=== PATIENT | male | born 1965 | race Caucasian/White ===

== ENCOUNTER 2017-02-06 21:33 | Observation (INO) | payer BC, OTHER ==
[2017-02-06 22:03] LABS: ABSOLUTE BASOPHILS # (AUTO) 0.1 10^3/uL (0.0-0.2); ABSOLUTE EOSINOPHILS # (AUTO) 0.1 10^3/uL (0.0-0.6); ABSOLUTE LYMPHOCYTES (AUTO) 1.3 10^3/uL (0.5-4.7); ABSOLUTE MONOCYTES (AUTO) 0.8 10^3/uL (0.1-1.4); BASOPHILS % (AUTO) 1.2 % (0-2); HEMATOCRIT 45.9 % (37.9-51.0); HEMOGLOBIN 15.3 g/dL (13.5-17.0); LYMPHOCYTES % (AUTO) 21.2 % (13-45); MEAN CORPUSCULAR HGB CONC 33.2 g/dL (32.0-36.0); MEAN CORPUSCULAR VOLUME 93 fl (80-97); MONOCYTES % (AUTO) 11.9 % (3-13); RED BLOOD COUNT 4.92 10^6/uL (4.35-5.55); RED CELL DISTRIBUTION WIDTH 12.8 % (11.5-14.0); SEGMENTED NEUTROPHILS % (AUTO) 63.7 % (42-78); WHITE BLOOD COUNT 6.3 10^3/uL (4.0-10.5)
[2017-02-06] MEDS ORDERED: MORPHINE SULFATE 10 MG/ML INJ IV ONE (22:03)
--- NOTE | 2017-02-06 22:04 | ER Document Report ---
ED Cardiac - General Chief Complaint: Chest Pain Stated Complaint: CHEST PAIN Time seen by provider: 22:04 Mode of Arrival: Ambulatory Information source: Patient TRAVEL OUTSIDE OF THE [place] IN LAST 30 DAYS: No - HPI Patient complains to provider of: Chest pain Was the onset of pain: Sudden Is the pain a: New problem Chest pain location: Substernal Quality of pain: Heaviness Chest pain radiation location: Left arm Severity now: Mild Severity at worst: Moderate Chest pain precipitating factors: At Rest Cardiac risk factors: Hx MS Positive cardiac history: Yes Associated symptoms: Headache, Lightheaded, Nausea/vomiting, Shortness of breath Exacerbated by: Denies Relieved by: Nothing Similar symptoms previously: Yes Recently seen / treated by doctor: No Notes: Patient is a 51-year-old male who presents to the emergency room complaining of chest heaviness with aching pain down his left arm, headache, nausea, shortness of breath, cold chills, symptoms started shortly before arrival in the emergency room, and have resolved since, patient was in the left anterior chest wall, he denies any injury, no cough, cold, congestion, he does report a history of similar symptoms in the past, states he was diagnosed with a "mild heart attack" had a cardiac catheterization at [facility] but did not receive any stents - Related Data Allergies/Adverse Reactions: No Known Allergies Allergy (Verified 02/07/17 01:14) Home Medications: Current Home Medications Fluoxetine HCl [Prozac] 40 mg PO DAILY 02/07/17 [History] Omeprazole Magnesium [Prilosec Otc] 40 mg PO DAILY 02/07/17 [History] Past Medical History - General Information source: Patient - Social History Smoking Status: Never Smoker Family History: Reviewed & Not Pertinent - Past Medical History Cardiac Medical History: Reports: Hx Hypertension Renal/ Medical History: Reports: Hx Kidney Stones Review of Systems - Review of Systems Constitutional: Chills EENT: No symptoms reported Cardiovascular: See HPI Respiratory: See HPI Gastrointestinal: Nausea Genitourinary: No symptoms reported Male Genitourinary: No symptoms reported Musculoskeletal: No symptoms reported Skin: No symptoms reported Hematologic/Lymphatic: No symptoms reported Neurological/Psychological: No symptoms reported -: Yes All other systems reviewed and negative Physical Exam - Vital signs Vitals: Temp Pulse Resp BP Pulse Ox 98.2 F 84 20 126/74 H 97 02/06/17 21:51 02/06/17 21:51 02/06/17 21:51 02/06/17 21:51 02/06/17 21:51 Interpretation: Normal - General General appearance: Appears well, Alert - HEENT Head: Normocephalic, Atraumatic Eyes: Normal Pupils: PERRL - Respiratory Respiratory status: No respiratory distress Chest status: Tender - Mild tenderness to palpate in left anterior chest wall Breath sounds: Normal Chest palpation: Normal - Cardiovascular Rhythm: Regular Heart sounds: Normal auscultation Murmur: No - Abdominal Inspection: Normal Distension: No distension Bowel sounds: Normal Tenderness: Nontender Organomegaly: No organomegaly - Back Back: Normal, Nontender - Extremities General upper extremity: Normal inspection, Nontender, Normal color, Normal ROM , Normal temperature General lower extremity: Normal inspection, Nontender, Normal color, Normal ROM , Normal temperature, Normal weight bearing. No: Tiki's sign - Neurological Neuro grossly intact: Yes Cognition: Normal Orientation: AAOx4 [place] Coma Scale Eye Opening: Spontaneous [place] Coma Scale Verbal: Oriented [place] Coma Scale Motor: Obeys Commands Effie Coma Scale Total: 15 Speech: Normal Motor strength normal: LUE, RUE, LLE, RLE Sensory: Normal - Psychological Associated symptoms: Normal affect, Normal mood - Skin Skin Temperature: Warm Skin Moisture: Dry Skin Color: Normal Course - Re-evaluation Re-evalutation: 02/07/17 03:33 Patient's chest pain is reproducible on palpation, however he has a significant cardiac history with risk factors for MS, and therefore will be placed on observation status on the hospitalist service for further evaluation and treatment - Vital Signs Vital signs: Temp Pulse Resp BP Pulse Ox 98.2 F 84 17 126/83 H 97 02/06/17 21:51 02/06/17 21:51 02/07/17 03:01 02/07/17 03:01 02/07/17 03:01 - Laboratory Result Diagrams: 02/06/17 21:51 02/06/17 21:51 Laboratory results interpreted by me: 02/06/17 21:51 Creatine Kinase 175 H - Diagnostic Test Radiology reviewed: Image reviewed, Reports reviewed - EKG Interpretation by Me EKG shows normal: Sinus rhythm Rate: Normal Rhythm: NSR - Transfer of Care Care transferred to following provider: Dr Wetzel Discharge - Discharge Clinical Impression: Chest pain Qualifiers: Chest pain type: unspecified Qualified Code(s): R07.9 - Chest pain, unspecified Condition: Stable Disposition: ADMITTED OBSERVATION Admitting Provider: Hospitalist Unit Admitted: Telemetry Referrals: CHARISSA SANDHU MD [Primary Care Provider] - Follow up as needed
[2017-02-06 22:43] LABS: ALANINE AMINOTRANSFERASE 26 U/L (21-72); ALKALINE PHOSPHATASE 98 U/L (38-126); ANION GAP 12 (5-19); ASPARTATE AMINO TRANSFERASE 24 U/L (17-59); BILIRUBIN,TOTAL 0.5 mg/dL (0.2-1.3); BLOOD UREA NITROGEN 17 mg/dL (7-20); CALCIUM 9.4 mg/dL (8.4-10.2); CARBON DIOXIDE 25 mmol/L (22-30); CHLORIDE 100 mmol/L (98-107); CREATINE KINASE 175 U/L (55-170); CREATININE RESULT 1.04 mg/dL (0.52-1.25); GLUCOSE 78 mg/dL (75-110); TOTAL PROTEIN 6.5 g/dL (6.3-8.2)
[2017-02-06 22:51] LABS: CREATINE KINASE MB 0.43 ng/mL (<4.55)
[2017-02-06 22:54] LABS: TROPONIN I < 0.012 ng/mL
[2017-02-07] MEDS ORDERED: ACETAMINOPHEN 325 MG TABLET PO PRN (05:17)
[2017-02-07] MEDS ORDERED: LANSOPRAZOLE 30 MG TAB.RAP.DR PO ONE ×2 (08:30→11:30)
[2017-02-07] MEDS ORDERED: ASPIRIN 81 MG TABLET, CHEWABLE PO ONE (08:30)
[2017-02-07 08:35] LABS: CHOLESTEROL 211.72 mg/dL (0-200); Direct HDL 61 mg/dL (>40); TRIGLYCERIDES 101 mg/dL (<150)
[2017-02-07 08:45] LABS: DIRECT LDL 136 mg/dL (<100)
[2017-02-07 08:53] LABS: ALCOHOL < 10 mg/dL (NONE DETECTED)
--- NOTE | 2017-02-07 09:34 | PDOC H&P ---
History of Present Illness Admission Date/PCP: 02/07/17 03:32 CHARISSA SANDHU MD Patient complains of: chest pain History of Present Illness: QNIG JUNE is a 51 year old , with underlying mild anxiety and depression, without suicidal or homicidal ideation, known hiatal hernia, mild arthritis, who reportedly suffered a "mild heart attack " 7-8 years ago, with cardiac catheterization at [facility] per patient revealing no significant disease , and with no angioplasty or stent implantation felt necessary. Presents to the emergency room for evaluation of above complaint. Was sitting in a chair when he developed left-sided chest Heaviness, with aching pain down his left arm, and associated mild headache, nausea, shortness of breath, in cold chills. Onset of symptoms shortly before arrival in the emergency room. Partial relief with 2 sublingual nitroglycerin. Symptoms have greatly decreased in intensity, but have persisted in a somewhat waxing and waning fashion since then. Still having mild discomfort at the present time. Pain was noted to be increased with palpation and compression by the emergency room physician. Previous such episodes of pain, one of which led to the above workup a number of years ago. 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 States he stopped several times along the way. Patient has been discussed with emergency room physician who evaluated the patient. . Laboratory results are listed in [employer] and are reviewed. X-ray summary results are listed below, with full report(s) reviewed. . EKG reviewed. And compared to a tracing from 04/23/2015 Social history/personal habits: Single. No children. Recently self-employed, but currently unemployed. Never a smoker. Rare alcohol. Denies illicit drug use. Allergies/adverse reactions NKDA. Home medications are reviewed by discussion with patient and are to be reconciled by nursing staff in [facility]. Home medications initially autopopulated into [facility] may not accurately reflect patient's true medications, dosages, and/or frequencies. REVIEW OF SYSTEMS: Constitutional: No fever or chills. Eyes: Wears glasses. ENT: No swallowing problems or complaints. No hearing problems or complaints. Pulmonary: See history and present illness. Cardiovascular: See history and present illness. Gastrointestinal: See history and present illness. Skin: No current complaints, including rashes. Hematologic: No unusual easy bruising or bleeding. Neurologic: No current complaints, including numbness or tingling. Musculoskeletal: Joint pain from arthritis. Psychiatric: Mild Anxiety depression; denies suicidal or homicidal ideation. Endocrine: No current complaints, including polyuria. Genitourinary: No current complaints, including dysuria. PHYSICAL EXAMINATION: 5 feet 7 inches tall. 79.4 kg. Temperature 98.2. BMI 27.4 kg/m. Blood pressure 139/88. Pulse 67 and regular. 97% saturation on room air. Respirations are 14 and unlabored. Slightly overweight otherwise well-nourished well-developed male who appears a bit younger than his stated age. Pleasant awake alert and cooperative. No obvious distress other than perhaps mildly anxious. Male follow up manager is present at his side; patient approves. Female emergency room nurse Martha is present. Skin is warm and dry. No grossly obvious evidence of rash in areas of skin examined. No subcutaneous nodules palpated. ENT: Hearing grossly normal to normal conversation. Tongue midline on protrusion pink and slightly moist. Eyes: No scleral icterus. Pupils equal and reactive to light at 4 mm. [place] conjunctivae. Neck is supple and nontender to gentle active range of motion and palpation. Midline trachea. No palpable thyroid nodule mass enlargement or tenderness. Lymphatic: No palpable cervical or clavicular nodes. Neck and lymphatic exams limited by patient body habitus. Psychiatric: Reasonable insight into acute and chronic medical issues. Oriented to time location and why here. Lungs: Auscultation reveals clear and equal breath sounds bilaterally. No use of accessory respiratory muscles. Cardiovascular: Heart regular rate and rhythm, without gallop murmur or rub. No carotid or abdominal aortic bruits. No ankle or pedal edema. palpable dorsalis pedis pulses. Abdomen: soft, , slightly distended nontender with positive bowel sounds. Unable to adequately evaluate abdomen for masses or organomegaly due to distention. Compression of neither his upper abdomen nor sternum reproduces her previously noted chest pain, but compression of his left anterior chest wall does. Extremities: Feet are warm and dry. No calf tenderness to compression. No grossly obvious visual evidence of calf swelling. Gentle manipulation of lower extremities fails to reveal any obvious evidence of injury or instability to knees hips or ankles. Neurologic: Moves upper extremities grossly normally. Patellar reflexes absent. Absent Babinski. Light touch is intact at feet. Dorsiflexion and plantarflexion of feet 5 / 5 and symmetric. Past Medical History Cardiac Medical History: Reports: Coronary Artery Disease, Myocardial Infarction , Hypertension Denies: Congestive Heart Failure, DVT, Hyperlipidema, Pulmonary Embolism Pulmonary Medical History: Denies: Asthma, Chronic Obstructive Pulmonary Disease (COPD) EENT Medical History: Reports: Eyes - Wears glasses. Denies: Ears, Throat Neurological Medical History: Denies: Hemorrhagic CVA, Ischemic CVA, Seizures Endocrine Medical History: Denies: Diabetes Mellitus Type 1, Diabetes Mellitus Type 2, Hyperthyroidism, Hypothyroidism Renal/ Medical History: Reports: Nephrolithiasis - History of GI Medical History: Reports: Hiatal Hernia Denies: Cirrhosis, Hepatitis, Peptic Ulcer Disease Musculoskeltal Medical History: Reports: Arthritis Skin Medical History: Reports: None Denies: Eczema, Psoriasis Psychiatric Medical History: Reports: Depression, General Anxiety Disorder Denies: Alcohol Dependency, Substance Abuse, Tobacco Dependency Hematology: Reports: None Infectious Medical History: Denies: Hepatitis B, Hepatitis C Past Surgical History Past Surgical History: Reports: None Social History Information Source: Patient, Emergency Med Personnel, [facility] Records Smoking Status: Never Smoker Frequency of Alcohol Use: Rare Drugs: None - Advance Directive Resuscitation Status: Full Code Surrogate healthcare decision maker:: His sister Ysabel Family History Family History: Reviewed & Not Pertinent Parental Family History Reviewed: Yes Children Family History Reviewed: NA Sibling(s) Family History Reviewed.: Yes Medication/Allergy Home Medications: Fluoxetine HCl [Prozac] 40 mg PO DAILY 02/07/17 Omeprazole Magnesium [Prilosec Otc] 40 mg PO DAILY 02/07/17 Allergies/Adverse Reactions: No Known Allergies Allergy (Verified 02/07/17 01:14) Physical Exam Vital Signs: Temp Pulse Resp BP Pulse Ox 98.2 F 84 16 137/84 H 99 02/07/17 07:08 02/06/17 21:51 02/07/17 07:01 02/07/17 07:01 02/07/17 07:01 Results Impressions: Chest X-Ray 02/06/17 21:39 IMPRESSION: NO ACUTE RADIOGRAPHIC FINDING IN THE CHEST. Assessment & Plan - Diagnosis (1) Anxiety Is this a current diagnosis for this admission?: YesPlan: Resume home medications as appropriate once these have been determined and reviewed. (2) CAD (coronary artery disease) Qualifiers: Coronary Disease-Associated Artery/Lesion type: [place] artery [place] vs. transplanted heart: [place] heart Associated angina: without angina Qualified Code(s): I25.10 - Atherosclerotic heart disease of [place] coronary artery without angina pectoris Is this a current diagnosis for this admission?: Yes (3) Depression Qualifiers: Depression Type: unspecified Qualified Code(s): F32.9 - Major depressive disorder, single episode, unspecified Is this a current diagnosis for this admission?: YesPlan: Resume home medications as appropriate once these have been reviewed. (4) Precordial chest pain Is this a current diagnosis for this admission?: YesPlan: Likely this is musculoskeletal in nature, but given both his suspected coronary artery disease, along with his recent prolonged trip, will check d-dimer, and Patient will be placed in observation bed under chest pain protocol. Patient understands to notify staff should chest pain recur. Serial troponin's . Repeat EKG. lipid panel. I have strongly urged patient to be careful getting out of bed, to avoid a fall with injury. Knee high SCDs for DVT prophylaxis. Along with subcutaneous Lovenox . Impression and plans were discussed with patient, who concurs. Time spent in evaluation and management of patient: 61 minutes.
[2017-02-07 09:53] VITALS: BP 114/86
[2017-02-07] MEDS ORDERED: FLUOXETINE HCL 20 MG CAPSULE PO SCH (10:00)
[2017-02-07] MEDS ORDERED: ENOXAPARIN SODIUM INJ 40 MG/0.4 ML DISP.SYRIN SUBCUT SCH (10:00)
[2017-02-07] MEDS ORDERED: (PENDING PHARMACY ID) (Omeprazole Magnesium [Prilosec Otc] 40 MG) PO SCH (10:30)
--- NOTE | 2017-02-07 15:47 | PDOC DISCHARGE SUMMARY ---
General - Admit/Disc Date/PCP Admission Date/Primary Care Provider: 02/07/17 07:45 CHARISSA SANDHU MD Discharge Date: 02/07/17 - Discharge Diagnosis (1) Musculoskeletal chest pain Is this a current diagnosis for this admission?: Yes (2) Hyperlipidemia Is this a current diagnosis for this admission?: Yes (3) Anxiety Is this a current diagnosis for this admission?: Yes (4) Depression Is this a current diagnosis for this admission?: Yes - Additional Information Resuscitation Status: Full Code Discharge Diet: As Tolerated, Cardiac Discharge Activity: Activity As Tolerated Home Medications: Aspirin [Ecotrin 81 mg EC Tablet] 81 mg PO DAILY #30 tabec 02/07/17 Atorvastatin Calcium [Lipitor 40 mg Tablet] 40 mg PO QHS #30 tablet 02/07/17 Cyclobenzaprine HCl [Flexeril 10 mg Tablet] 10 mg PO QHS #3 tablet 02/07/17 Fluoxetine HCl [Prozac] 40 mg PO DAILY 02/07/17 Omeprazole Magnesium [Prilosec Otc] 40 mg PO DAILY 02/07/17 History of Present Illness Patient complains of: Reproducible chest pain History of Present Illness: QING JUNE is a 51 year old , with underlying mild anxiety and depression, without suicidal or homicidal ideation, known hiatal hernia, mild arthritis, who reportedly suffered a "mild heart attack " 7-8 years ago, with cardiac catheterization at [facility] [place] per patient revealing no significant disease , and with no angioplasty or stent implantation felt necessary. Presents to the emergency room for evaluation of above complaint. Was sitting in a chair when he developed left-sided chest Heaviness, with aching pain down his left arm, and associated mild headache, nausea, shortness of breath, in cold chills. Onset of symptoms shortly before arrival in the emergency room. Partial relief with 2 sublingual nitroglycerin. The patient had symptom resolution with morphine. Pain was noted to be increased with palpation and compression by the emergency room physician. 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 States he stopped several times along the way. Hospital Course Hospital Course: The patient was observed in a continues telemetry unit, serial cardiac enzymes were obtained which were nonsuggestive. The patient's EKG revealed no acute changes and the patient had no events on furnace mechanic helper. Patient had no further replication of symptoms. The patient's pain was reproducible on physical examination with manipulation of the shoulder and arm. The patient states that sometimes he has tingling down both arms especially when working. The patient also complains of chronic neck pain. The patient does have a primary care provider Dr. Rohit Anton. I have recommended follow-up. A she denies any neuropathies or overt evidence of radiculopathy Physical Exam Vital Signs: Temp Pulse Resp BP Pulse Ox 97.7 F 78 18 114/86 H 98 02/07/17 11:42 02/07/17 11:42 02/07/17 11:42 02/07/17 11:42 02/07/17 11:42 Intake & Output 02/05/17 02/06/17 02/07/17 23:59 23:59 23:59 Weight 89.1 kg General appearance: PRESENT: no acute distress, cooperative, well-developed, well-nourished Head exam: PRESENT: atraumatic, normocephalic Eye exam: PRESENT: conjunctiva pink, EOMI, PERRLA. ABSENT: scleral icterus Ear exam: PRESENT: normal external ear exam Mouth exam: PRESENT: moist, tongue midline Neck exam: ABSENT: carotid bruit, JVD, lymphadenopathy, thyromegaly Respiratory exam: PRESENT: clear to auscultation fabrizio, symmetrical, unlabored. ABSENT: rales, rhonchi, tachypnea, wheezes Cardiovascular exam: PRESENT: RRR. ABSENT: diastolic murmur, rubs, systolic murmur Pulses: PRESENT: normal dorsalis pedis pul Vascular exam: PRESENT: normal capillary refill GI/Abdominal exam: PRESENT: normal bowel sounds, soft. ABSENT: distended, guarding, mass, organolmegaly, rebound, tenderness Rectal exam: PRESENT: deferred Extremities exam: PRESENT: full ROM. ABSENT: calf tenderness, clubbing, pedal edema Neurological exam: PRESENT: alert, awake, oriented to person, oriented to place , oriented to time, oriented to situation, CN II-XII grossly intact. ABSENT: motor sensory deficit Psychiatric exam: PRESENT: appropriate affect, normal mood. ABSENT: homicidal ideation, suicidal ideation Skin exam: PRESENT: dry, intact, warm. ABSENT: cyanosis, rash Results Laboratory Results: Labs- Last Values WBC 6.3 10^3/uL (4.0-10.5) 02/06/17 21:51 RBC 4.92 10^6/uL (4.35-5.55) 02/06/17 21:51 Hgb 15.3 g/dL (13.5-17.0) 02/06/17 21:51 Hct 45.9 % (37.9-51.0) 02/06/17 21:51 MCV 93 fl (80-97) 02/06/17 21:51 MCH 31.0 pg (27.0-33.4) 02/06/17 21:51 MCHC 33.2 g/dL (32.0-36.0) 02/06/17 21:51 RDW 12.8 % (11.5-14.0) 02/06/17 21:51 Plt Count 165 10^3/uL (150-450) 02/06/17 21:51 Seg Neutrophils % 63.7 % (42-78) 02/06/17 21:51 Lymphocytes % 21.2 % (13-45) 02/06/17 21:51 Monocytes % 11.9 % (3-13) 02/06/17 21:51 Eosinophils % 2.0 % (0-6) 02/06/17 21:51 Basophils % 1.2 % (0-2) 02/06/17 21:51 Absolute Neutrophils 4.0 10^3/uL (1.7-8.2) 02/06/17 21:51 Absolute Lymphocytes 1.3 10^3/uL (0.5-4.7) 02/06/17 21:51 Absolute Monocytes 0.8 10^3/uL (0.1-1.4) 02/06/17 21:51 Absolute Eosinophils 0.1 10^3/uL (0.0-0.6) 02/06/17 21:51 Absolute Basophils 0.1 10^3/uL (0.0-0.2) 02/06/17 21:51 D-Dimer < 0.27 ug/mL (0.00-0.50) 02/07/17 09:13 Sodium 137.0 mmol/L (137-145) 02/06/17 21:51 Potassium 4.0 mmol/L (3.6-5.0) 02/06/17 21:51 Chloride 100 mmol/L (98-107) 02/06/17 21:51 Carbon Dioxide 25 mmol/L (22-30) 02/06/17 21:51 Anion Gap 12 (5-19) 02/06/17 21:51 BUN 17 mg/dL (7-20) 02/06/17 21:51 Creatinine 1.04 mg/dL (0.52-1.25) 02/06/17 21:51 Est GFR ( Amer) > 60 (>60) 02/06/17 21:51 Est GFR (Non-Af Amer) > 60 (>60) 02/06/17 21:51 Glucose 78 mg/dL (75-110) 02/06/17 21:51 Calcium 9.4 mg/dL (8.4-10.2) 02/06/17 21:51 Total Bilirubin 0.5 mg/dL (0.2-1.3) 02/06/17 21:51 Direct Bilirubin 0.0 mg/dL (0.0-0.3) 02/06/17 21:51 AST 24 U/L (17-59) 02/06/17 21:51 ALT 26 U/L (21-72) 02/06/17 21:51 Alkaline Phosphatase 98 U/L (38-126) 02/06/17 21:51 Creatine Kinase 175 U/L (55-170) H 02/06/17 21:51 CK-MB (CK-2) 0.43 ng/mL (<4.55) 02/06/17 21:51 Troponin I < 0.012 ng/mL 02/07/17 08:01 Total Protein 6.5 g/dL (6.3-8.2) 02/06/17 21:51 Albumin 4.0 g/dL (3.5-5.0) 02/06/17 21:51 Triglycerides 101 mg/dL (<150) 02/07/17 08:01 Cholesterol 211.72 mg/dL (0-200) H 02/07/17 08:01 LDL Cholesterol Direct 136 mg/dL (<100) H 02/07/17 08:01 VLDL Cholesterol 20.0 mg/dL (10-31) 02/07/17 08:01 HDL Cholesterol 61 mg/dL (>40) 02/07/17 08:01 Serum Alcohol < 10 mg/dL (NONE DETECTED) 02/07/17 08:01 Impressions: Chest X-Ray 02/06/17 21:39 IMPRESSION: NO ACUTE RADIOGRAPHIC FINDING IN THE CHEST. Qualifiers PATEINT BEING DISCHARGED WITH ANY OF THE FOLLOWING DIAGNOSIS?: No Plan Discharge Plan: The patient is a follow with primary care provider within one week for hospital follow-up. The patient has elected to proceed with his own cardiac workup through his primary care provider. I discussed prescriptions with patient including statin aspirin and muscle relaxants. A copy of the patient's labs and EKG were provided to the patient for his follow-up. Time Spent: Greater than 30 Minutes
[2017-02-07] MEDS ORDERED: LANSOPRAZOLE 30 MG TAB.RAP.DR PO SCH (17:00)
--- NOTE | 2017-02-07 19:33 | EKG REPORT ---
SEVERITY:- BORDERLINE ECG - SINUS RHYTHM BORDERLINE R WAVE PROGRESSION, ANTERIOR LEADS : Confirmed by: Jas Arreola 07-Feb-2017 19:32:32
[2017-02-08] MEDS ORDERED: LANSOPRAZOLE 30 MG TAB.RAP.DR PO SCH (08:00)
[2017-02-08] MEDS ORDERED: ASPIRIN 81 MG TABLET, ENT COATED PO SCH (10:00)
== END 2017-02-07 12:35 | disposition home or self-care (01) ==
LOC: ER 21:33 → UNDOADMOB 02-07 03:32 → EH 02-07 03:32 → 4N 02-07 07:45 → UNDOADMOB 02-07 07:45 → 4N 02-07 08:24 → EH 02-07 08:24
PROVIDERS: ADMIT Family Medicine; ATTEND Family Medicine
PROC: 3E033GC Introduction of Other Therapeutic Substance into Peripheral Vein, Percutaneous Approach (ICD-10-PCS; principal; 2017-02-06)
DX: R07.89 Other chest pain (principal); E78.5 Hyperlipidemia, unspecified; F41.9 Anxiety disorder, unspecified; F32.9 Major depressive disorder, single episode, unspecified; I10 Essential (primary) hypertension; I25.10 Atherosclerotic heart disease of native coronary artery without angina pectoris; I25.2 Old myocardial infarction; Z87.442 Personal history of urinary calculi
CPT/HCPCS: 93005; 99285; 96374; 36415 ×2; 82553; 80307; 82550; 85025; 80053; 84484 ×2; 85379; 80061; 71010; 93010; G0378 ×2; J2270; J1650

== ENCOUNTER 2018-03-05 21:17 | Emergency (ER) | payer OTHER ==
[2018-03-05] MEDS ORDERED: ONDANSETRON HCL INJ/PF 4 MG/2 ML SDV IV ONE (21:42)
[2018-03-05] MEDS ORDERED: MORPHINE SULFATE 10 MG/ML INJ IV ONE (21:42)
[2018-03-05] MEDS ORDERED: KETOROLAC TROMETHAMINE INJ/PF 30 MG/1 ML SDV IV ONE (21:43)
[2018-03-05] MEDS ORDERED: NORMAL SALINE 1000 ML 1,000 ML IV ONE (21:43)
[2018-03-05 21:58] LABS: ABSOLUTE LYMPHOCYTES (AUTO) 0.5 10^3/uL (0.5-4.7); ABSOLUTE MONOCYTES (AUTO) 0.1 10^3/uL (0.1-1.4); ABSOLUTE NEUT (AUTO) 7.2 10^3/uL (1.7-8.2); BASOPHILS % (AUTO) 0.4 % (0-2); EOSINOPHILS % (AUTO) 0.5 % (0-6); HEMATOCRIT 43.4 % (37.9-51.0); HEMOGLOBIN 14.6 g/dL (13.5-17.0); LYMPHOCYTES % (AUTO) 6.8 % (13-45); MEAN CORPUSCULAR HEMOGLOBIN 30.7 pg (27.0-33.4); MEAN CORPUSCULAR HGB CONC 33.6 g/dL (32.0-36.0); MEAN CORPUSCULAR VOLUME 91 fl (80-97); MONOCYTES % (AUTO) 1.7 % (3-13); PLATELET COUNT 149 10^3/uL (150-450); RED BLOOD COUNT 4.74 10^6/uL (4.35-5.55); RED CELL DISTRIBUTION WIDTH 12.8 % (11.5-14.0); SEGMENTED NEUTROPHILS % (AUTO) 90.6 % (42-78); TOTAL CELLS COUNTED % (AUTO) 100 %
[2018-03-05 22:16] LABS: ALANINE AMINOTRANSFERASE 27 U/L (21-72); ALBUMIN 4.2 g/dL (3.5-5.0); ALKALINE PHOSPHATASE 93 U/L (38-126); ANION GAP 8 (5-19); ASPARTATE AMINO TRANSFERASE 22 U/L (17-59); BILIRUBIN,DIRECT 0.1 mg/dL (0.0-0.4); BILIRUBIN,TOTAL 0.4 mg/dL (0.2-1.3); BLOOD UREA NITROGEN 16 mg/dL (7-20); CALCIUM 9.4 mg/dL (8.4-10.2); CARBON DIOXIDE 28 mmol/L (22-30); CHLORIDE 100 mmol/L (98-107); GLUCOSE 101 mg/dL (75-110); SODIUM 136.1 mmol/L (137-145); TOTAL PROTEIN 6.4 g/dL (6.3-8.2)
--- NOTE | 2018-03-05 23:25 | ER Document Report ---
ED GI/ - General Chief Complaint: Flank Pain Stated Complaint: BACK/ABDOMINAL PAIN Time Seen by Provider: 03/05/18 21:36 Notes: Patient is a 52-year-old male comes emergency department for chief complaint of pain to his right flank and right abdomen, symptoms started suddenly prior to arrival, he comes by EMS. He states pain is sharp, he feels that some in both sides of his back but worse in the right. He denies nausea or vomiting, fever or chills, injury, numbness. He has received fentanyl and Dilaudid, 200 mcg and 1 mg respectively, by EMS. He states he has a history of hiatal hernia and hypertension reportedly, denies any surgeries. TRAVEL OUTSIDE OF THE [place] IN LAST 30 DAYS: No - Related Data Allergies/Adverse Reactions: No Known Allergies Allergy (Verified 02/07/17 01:14) Past Medical History - General Information source: Patient - Social History Smoking Status: Never Smoker Chew tobacco use (# tins/day): No Frequency of alcohol use: None Drug Abuse: None Lives with: Family Family History: Reviewed & Not Pertinent Patient has suicidal ideation: No Patient has homicidal ideation: No - Past Medical History Cardiac Medical History: Reports: Hx Coronary Artery Disease, Hx Heart Attack, Hx Hypertension Denies: Hx Congestive Heart Failure, Hx DVT, Hx Hypercholesterolemia, Hx Pulmonary Embolism Pulmonary Medical History: Denies: Hx Asthma, Hx COPD Neurological Medical History: Denies: Hx Seizures Endocrine Medical History: Denies: Hx Diabetes Mellitus Type 1, Hx Diabetes Mellitus Type 2, Hx Hyperthyroidism, Hx Hypothyroidism Renal/ Medical History: Reports: Hx Kidney Stones. Denies: Hx Peritoneal Dialysis GI Medical History: Reports: Hx Gastroesophageal Reflux Disease, Hx Hiatal Hernia. Denies: Hx Cirrhosis, Hx Hepatitis Musculoskeltal Medical History: Reports Hx Arthritis Skin Medical History: Denies Hx Eczema, Denies Hx Psoriasis Psychiatric Medical History: Reports: Hx Depression Infectious Medical History: Denies: Hx Hepatitis Surgical Hx: Negative - Immunizations Immunizations up to date: Yes Review of Systems - Review of Systems Constitutional: No symptoms reported EENT: No symptoms reported Cardiovascular: No symptoms reported Respiratory: No symptoms reported Gastrointestinal: See HPI Genitourinary: See HPI Male Genitourinary: No symptoms reported Musculoskeletal: No symptoms reported Skin: No symptoms reported Hematologic/Lymphatic: No symptoms reported Neurological/Psychological: No symptoms reported Physical Exam - Vital signs Vitals: Temp Pulse Resp BP Pulse Ox 98.7 F 86 18 115/70 96 03/06/18 00:26 03/06/18 00:26 03/06/18 00:03/06/18 00:03/06/18 00:26 - General General appearance: Anxious In distress: Mild - Patient shifting on the bed, appears uncomfortable, no severe distress - HEENT Head: Normocephalic, Atraumatic Eyes: Normal Conjunctiva: Normal Extraocular movements intact: Yes Eyelashes: Normal Pupils: PERRL Nasal: Normal Mouth/Lips: Normal Mucous membranes: Normal Pharynx: Normal Neck: Normal - Respiratory Respiratory status: No respiratory distress Breath sounds: Normal. No: Decreased air movement, Wheezing - Cardiovascular Rhythm: Regular. No: Tachycardia Heart sounds: Normal auscultation, S1 appreciated, S2 appreciated - Abdominal Inspection: Normal Distension: No distension Bowel sounds: Normal Tenderness: Tender - There is mild generalized tenderness over the abdomen, nonspecific, no guarding, no rigidity - Back Back: Tender - There is tenderness in the mid to lower back, bilateral, worse on the right compared to the left, mainly paraspinal lumbar. No saddle anesthesia, no midline tenderness, normal upper and lower extremity strength, range of motion, distal neurovascular exam. No: Vertebra tenderness - Extremities General upper extremity: Normal inspection, Nontender, Normal strength, Normal temperature General lower extremity: Normal inspection, Nontender, Normal strength, Normal temperature. 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 CBC, chemistry unremarkable. Patient has not been able to urinate yet. CT showing no stone, perforation, or acute abnormality. After IV fluids patient felt much better, he was able to urinate, urine is unremarkable. Patient does have back pain on palpation, worse on the right but also on the left, paraspinal musculature, no injury, no neurological deficit, no history of IV drug abuse, no fever, no incontinence. Patient states he has trouble moving his bowels, but he has not had a normal bowel movement in a couple of days, there is some evidence of retained stool on CAT scan, patient will be treated with stool softeners, muscle relaxers, discussed this in detail with patient and family, discussed return precautions in detail, they state satisfaction and agreement. - Vital Signs Vital signs: Temp Pulse Resp BP Pulse Ox 98.7 F 86 18 115/70 96 03/06/18 00:26 03/06/18 00:26 03/06/18 00:26 03/06/18 00:26 03/06/18 00:26 - Laboratory Result Diagrams: 03/05/18 21:52 03/05/18 21:52 Laboratory results interpreted by me: 03/05/18 03/05/18 21:52 21:52 Plt Count 149 L Seg Neutrophils % 90.6 H Lymphocytes % 6.8 L Monocytes % 1.7 L Sodium 136.1 L Discharge - Discharge Clinical Impression: Flank pain Abdominal pain Qualifiers: Abdominal location: generalized Qualified Code(s): R10.84 - Generalized abdominal pain Condition: Stable Disposition: HOME, SELF-CARE Additional Instructions: The CAT scan does not show any concerning abnormalities. Your laboratory workup is not show any concerning abnormalities. Examination and workup most suggestive that this is a combination of muscular back pain and you needing to move your bowels better. You have been provided with a muscle relaxer, apply heat to lower back as well, take Toradol if needed for pain as prescribed, drink a lot of fluids. Take the prescribed stool softener at least for the next several days, increase fiber in your diet. Follow-up with your primary care provider. Return if you worsen including vomiting, fever, returned or severe pain, bloody bowel movements, or any other concerning or worsening symptoms. Prescriptions: Ketorolac Tromethamine [Toradol 10 mg Tablet] 10 mg PO Q8HP PRN #24 tablet PRN Reason: Docusate Sodium [Colace 100 mg Capsule] 100 mg PO ASDIR PRN #30 capsule PRN Reason: Methocarbamol [Robaxin 750 mg Tablet] 750 mg PO Q6 #20 tablet Forms: Return to Work Referrals: CHARISSA SANDHU MD [Primary Care Provider] - Follow up as needed
--- NOTE | 2018-03-05 23:39 | RADIOLOGY REPORT (SQ) ---
EXAM DESCRIPTION: CT LTD RENAL STONE PROTOCOL ON COMPLETED DATE/TIME: 03/05/2018 11:12 pm REASON FOR STUDY: right flank pain, right abd pain COMPARISON: None. TECHNIQUE: CT scan of the abdomen and pelvis performed without intravenous or oral contrast. Images reviewed with lung, soft tissue, and bone windows. Reconstructed coronal and sagittal MPR images revi ewed. All images stored on PACS. All CT scanners at this facility use dose modulation, iterative reconstruction, and/or weight based d osing when appropriate to reduce radiation dose to as low as reasonably achievable (ALARA). [facility]: Dose Right [facility]: CareDose [facility]: Dose Right [facility]: Teradose 4D [facility]: Smart [employer] RADIATION DOSE: CT Rad equipment meets quality standard of care and radiation dose reduction techniq ues were employed. CTDIvol: 13.0 mGy. DLP: 713 mGy-cm.mGy. LIMITATIONS: None. FINDINGS: LOWER CHEST: No significant findings. No nodules or infiltrates. NON-CONTRASTED LIVER, SPLEEN, ADRENALS: Evaluation limited by lack of IV contrast. No identified sign ificant masses. PANCREAS: No masses. No peripancreatic inflammatory changes. GALLBLADDER: No identified stones by CT criteria. No inflammatory changes to suggest cholecystitis. RIGHT KIDNEY AND URETER: No suspicious masses. Assessment limited by lack of IV contrast. No signif icant calcifications. No hydronephrosis or hydroureter. LEFT KIDNEY AND URETER: No suspicious masses. Assessment limited by lack of IV contrast. No signifi cant calcifications. No hydronephrosis or hydroureter. AORTA AND RETROPERITONEUM: No aneurysm. No retroperitoneal masses or adenopathy. BOWEL AND PERITONEAL CAVITY: No obvious masses or inflammatory changes. No free fluid. APPENDIX: Normal. PELVIS, BLADDER, AND ABDOMINAL WALL:No abnormal masses. No free fluid. Bladder normal. BONES: No significant findings. OTHER: No other significant finding. IMPRESSION: NO ACUTE PROCESS IN THE ABDOMEN OR PELVIS. COMMENT: Quality ID # 436: Final reports with documentation of one or more dose reduction techniques (e.g., Automated exposure control, adjustment of the mA and/or kV according to patient size, use of iterative reconstruction technique) TECHNICAL DOCUMENTATION: JOB ID: [id number] [place]-72 2010 [employer]- All Rights Reserved Reading location - IP/workstation name: [email or web address]
[2018-03-05 23:45] LABS: APPEARANCE,URINE CLEAR; BILIRUBIN,URINE NEGATIVE (NEGATIVE); COLOR,URINE YELLOW; GLUCOSE, URINE NEGATIVE (NEGATIVE); KETONES,URINE NEGATIVE (NEGATIVE); LEUKOCYTE ESTERASE,URINE NEGATIVE (NEGATIVE); NITRITE,URINE NEGATIVE (NEGATIVE); PROTEIN,URINE NEGATIVE (NEGATIVE); URINE SPECIFIC GRAVITY 1.014; UROBILINOGEN,URINE NEGATIVE mg/dL (<2.0)
[2018-03-06 00:27] VITALS: BP 115/70
--- NOTE | 2018-03-06 10:26 | EKG REPORT ---
SEVERITY:- BORDERLINE ECG - SINUS RHYTHM PROBABLE LEFT ATRIAL ABNORMALITY : Confirmed by: Jas Arreola 06-Mar-2018 10:26:06
== END 2018-03-06 00:27 | disposition home or self-care (01) ==
LOC: ER 21:17
DX: K59.00 Constipation, unspecified (principal); R10.84 Generalized abdominal pain; M54.9 Dorsalgia, unspecified; I10 Essential (primary) hypertension; I25.10 Atherosclerotic heart disease of native coronary artery without angina pectoris; I25.2 Old myocardial infarction; Z87.442 Personal history of urinary calculi; Z87.19 Personal history of other diseases of the digestive system
CPT/HCPCS: 93005; 99285; 96361; 96374; 96375; 36415; 85025; 80053; 81001; 76380; 93010; J1885; J2270; J2405; J7030

== ENCOUNTER 2018-12-09 13:11 | Emergency (ER) | payer OTHER ==
[2018-12-09 13:34] VITALS: BP 132/75
--- NOTE | 2018-12-09 13:43 | ER Document Report ---
ED Flu Like - General Chief Complaint: Flu Symptoms Stated Complaint: SHORTNESS OF BREATH Time Seen by Provider: 12/09/18 13:36 Mode of Arrival: Ambulatory Information source: Patient Notes: Chief complaint: Chest pain History of complain:( obtained from----patient) 53 years old male with a history of anxiety depression disorder, 2 days ago was diagnosed with influenza. Currently being treated with Tamiflu, Zithromax, naproxen, hydrocodone- containing cough syrup. Presents today with midsternal chest pain and difficulty in breathing no wheezing. He is a non-smoker. Onset: As above Duration: Gradual Severity: Mild to moderate Quality: Sharp Context: Possible costochondritis Exacerbating factor and relieving factors: Change of position REVIEW OF SYSTEMS: CONSTITUTIONAL : Denies fever, chills, or sweats. Denies recent illness. EENT: Denies eye, ear, throat, or mouth pain or symptoms. Denies nasal or sinus congestion or discharge. Denies throat, tongue, or mouth swelling or difficulty swallowing. CARDIOVASCULAR: Denies chest pain. Denies palpitations or racing or irregular heart beat. Denies ankle edema. RESPIRATORY: Denies cough, cold, or chest congestion. Denies shortness of breath, difficulty breathing, or wheezing. GASTROINTESTINAL: Denies distention. Denies nausea, vomiting, or diarrhea. Denies blood in vomitus, stools, or per rectum. Denies black, tarry stools. Denies constipation. GENITOURINARY: Denies difficulty urinating, painful urination, burning, frequency, blood in urine, or discharge. FEMALE GENITOURINARY: Denies vaginal bleeding, heavy or abnormal periods, irregular periods. Denies vaginal discharge or odor. MUSCULOSKELETAL: Denies back or neck pain or stiffness. Denies joint pain or swelling. SKIN: Denies rash, lesions or sores. HEMATOLOGIC : Denies easy bruising or bleeding. LYMPHATIC: Denies swollen, enlarged glands. NEUROLOGICAL: Denies confusion or altered mental status. Denies passing out or loss of consciousness. Denies dizziness or lightheadedness. Denies headache. Denies weakness or paralysis or loss of use of either side. Denies problems with gait or speech. Denies sensory loss, numbness, or tingling. Denies seizures. PSYCHIATRIC: Denies anxiety or stress. Denies depression, suicidal ideation, or homicidal ideation. ALL OTHER SYSTEMS REVIEWED AND NEGATIVE. PHYSICAL EXAMINATION: GENERAL: Well-appearing, well-nourished and in no acute distress. HEAD: Atraumatic, normocephalic. EYES: Pupils equal round and reactive to light, extraocular movements intact, conjunctiva are normal. ENT: Nares patent, oropharynx clear without exudates. Moist mucous membranes. NECK: Normal range of motion, supple without lymphadenopathy Chest wall tenderness noted over the lower costosternal junctions LUNGS: Breath sounds clear to auscultation bilaterally and equal. No wheezes rales or rhonchi. HEART: Regular rate and rhythm without murmurs ABDOMEN: Soft, nontender, nondistended abdomen. No guarding, no rebound. No masses appreciated. Examination of genitals-deferred Musculoskeletal: Normal range of motion, no pitting or edema. No cyanosis. NEUROLOGICAL: Cranial nerves grossly intact. Normal speech, normal gait. Normal sensory, motor exams PSYCH: Normal mood, normal affect. SKIN: Warm, Dry, normal turgor, no rashes or lesions noted. Dictation was performed using [employer] voice recognition software TRAVEL OUTSIDE OF THE [place] IN LAST 30 DAYS: No - HPI Notes: Dictated - Related Data Allergies/Adverse Reactions: No Known Allergies Allergy (Verified 12/09/18 13:13) Past Medical History - Social History Smoking Status: Never Smoker Chew tobacco use (# tins/day): No Frequency of alcohol use: None Drug Abuse: None Lives with: Family Family History: Reviewed & Not Pertinent Patient has suicidal ideation: No Patient has homicidal ideation: No - Past Medical History Cardiac Medical History: Reports: Hx Coronary Artery Disease, Hx Heart Attack, Hx Hypertension Denies: Hx Congestive Heart Failure, Hx DVT, Hx Hypercholesterolemia, Hx Pulmonary Embolism Pulmonary Medical History: Denies: Hx Asthma, Hx COPD Neurological Medical History: Denies: Hx Seizures Endocrine Medical History: Denies: Hx Diabetes Mellitus Type 1, Hx Diabetes Mellitus Type 2, Hx Hyperthyroidism, Hx Hypothyroidism Renal/ Medical History: Reports: Hx Kidney Stones. Denies: Hx Peritoneal Dialysis GI Medical History: Reports: Hx Gastroesophageal Reflux Disease, Hx Hiatal Hernia. Denies: Hx Cirrhosis, Hx Hepatitis Musculoskeletal Medical History: Reports Hx Arthritis Skin Medical History: Denies Hx Eczema, Denies Hx Psoriasis Psychiatric Medical History: Reports: Hx Depression Infectious Medical History: Denies: Hx Hepatitis Past Surgical History: Reports: Hx Cardiac Surgery - Immunizations Immunizations up to date: Yes Review of Systems - Review of Systems Notes: Dictated Physical Exam - Vital signs Vitals: Temp Pulse Resp BP Pulse Ox 99.6 F 92 16 132/75 H 97 12/09/18 13:32 12/09/18 13:32 12/09/18 13:32 12/09/18 13:32 12/09/18 13:32 - Notes Notes: Dictated Course - Vital Signs Vital signs: Temp Pulse Resp BP Pulse Ox 99.6 F 92 16 132/75 H 97 12/09/18 13:32 12/09/18 13:32 12/09/18 13:32 12/09/18 13:32 12/09/18 13:32 - Diagnostic Test Radiology reviewed: Reports reviewed - Chest x-ray reported by radiologist as no significant finding Discharge - Discharge Clinical Impression: Chest wall pain, Influenza Condition: Fair Disposition: HOME, SELF-CARE Instructions: Chest Wall Pain ([facility]), Influenza ([facility]) [id number] Forms: Return to Work Referrals: CHARISSA SANDHU MD [Primary Care Provider] - Follow up as needed
--- NOTE | 2018-12-09 14:04 | RADIOLOGY REPORT (SQ) ---
EXAM DESCRIPTION: CHEST 2 VIEWS COMPLETED DATE/TIME: 12/09/2018 1:54 pm REASON FOR STUDY: Cough and shortness of breath COMPARISON: 04/23/2015 EXAM PARAMETERS: NUMBER OF VIEWS: two views TECHNIQUE: Digital Frontal and Lateral radiographic views of the chest acquired. RADIATION DOSE: NA LIMITATIONS: none FINDINGS: LUNGS AND PLEURA: No opacities, masses or pneumothorax. No pleural effusion. MEDIASTINUM AND HILAR STRUCTURES: No masses or contour abnormalities. HEART AND VASCULAR STRUCTURES: Heart normal size. No evidence for failure. BONES: No acute findings. HARDWARE: None in the chest. OTHER: No other significant finding. IMPRESSION: NO ACUTE RADIOGRAPHIC FINDING IN THE CHEST. TECHNICAL DOCUMENTATION: JOB ID: [id number] [employer]- All Rights Reserved Reading location - IP/workstation name: [email or web address]
== END 2018-12-09 14:50 | disposition home or self-care (01) ==
LOC: ER 13:11
DX: R07.89 Other chest pain (principal); J11.1 Influenza due to unidentified influenza virus with other respiratory manifestations; I25.10 Atherosclerotic heart disease of native coronary artery without angina pectoris; I10 Essential (primary) hypertension
CPT/HCPCS: 71046; 99284

== ENCOUNTER 2019-08-15 18:50 | Observation (INO) | payer OTHER ==
--- NOTE | 2019-08-15 19:56 | ER Document Report ---
ED Medical Screen (RME) - General Chief Complaint: Syncope Stated Complaint: POSSIBLE SYNCOPE Time Seen by Provider: 08/15/19 19:42 Primary Care Provider: CHARISSA SANDHU MD [Primary Care Provider] - Follow up as needed TRAVEL OUTSIDE OF THE [place] IN LAST 30 DAYS: No - HPI Notes: 08/15/19 19:51 Patient is a 53-year-old male with a history of hypertension, anxiety, GERD who presents complaining of 2 syncopal episodes with fall today. Patient states that he was stepping up onto a sidewalk when he had his first syncopal episode and fell on his knee and into a cooper. Patient states that thereafter he went about his day normal and went to the beach. He was at home when he was walking to the kitchen to the bathroom when he had another syncopal episode, but hit his Rt forehead. Patient states that he has been having intermittent sharp chest pain in the left side is not currently there. He has been having some diarrhea of the past couple weeks that is watery w/o abd pain. He otherwise has been eating and drinking without difficulty. He is urinating normally. Denies drug allergies. No recent illness. Denies any fever, changes in vision/speech/mentation/hearing, URI, sore throat, palpitations, syncope, cough, shortness of breath, wheeze, dyspnea, abdominal pain, nausea/vomiting, urinary retention, dysuria, hematuria, loss of control of bowel or bladder, numbness/tingling, saddle anesthesia, muscle paralysis/weakness, or rash. PHYSICAL EXAMINATION: GENERAL: Well-appearing, well-nourished and in no acute distress. A&Ox4. Answers questions appropriately. HEAD: Atraumatic, normocephalic. Non-tender. No wodos sign Face: there is very small area of swelling rt forehead with tenderness associated. EYES: Pupils equal round and reactive to light, extraocular movements intact, sclera anicteric, conjunctiva are normal. No raccoon eyes/entrapment ENT: EAC clear b/l. TM's intact b/l without erythema, fluid, or perforation. Nares patent and without discharge. oropharynx clear without exudates. No tonsilar hypertrophy or erythema. Moist mucous membranes. No sinus tenderness. No hemotympanum/CSF discharge. NECK: Normal range of motion, supple without lymphadenopathy. No rigidity. No midline tenderness. + mild tenderness to the Rt c-paraspinal mm Chest: No flail chest. equal rise/fall. LUNGS: Breath sounds clear to auscultation bilaterally and equal. No wheezes rales or rhonchi. HEART: Regular rate and rhythm without murmurs, rubs, gallops. ABDOMEN: Soft, nontender, nondistended abdomen. No guarding, no rebound. Normal bowel sounds present. No CVA tenderness bilaterally. Musculoskeletal: Ext b/l: FROM to passive/active. Strength 5+/5. No deficits noted. No bony tenderness of extremities. Back: FROM to passive/active. Strength 5+/5. No stepoffs or deformities. No other bony tenderness or ecchymosis. Extremities: No cyanosis, clubbing, or edema b/l. Peripheral pulses 2+. Capillary refill less than 2 seconds. NEUROLOGICAL: NIH 0. GCS 15. Cranial nerves grossly intact. Normal speech, normal gait. Normal sensory, motor exams. Reflexes 2+ b/l. ANU's negative. Pronator drift negative. Heel/gomez, finger/nose wnl. Romberg negative PSYCH: Normal mood, normal affect. SKIN: Warm, Dry, normal turgor, no rashes or lesions noted. - Related Data Allergies/Adverse Reactions: No Known Allergies Allergy (Verified 08/15/19 19:10) Past Medical History - Social History Chew tobacco use (# tins/day): No Frequency of alcohol use: Rare Drug Abuse: None - Past Medical History Cardiac Medical History: Reports: Hx Coronary Artery Disease, Hx Heart Attack, Hx Hypertension Denies: Hx Congestive Heart Failure, Hx DVT, Hx Hypercholesterolemia, Hx Pulmonary Embolism Pulmonary Medical History: Denies: Hx Asthma, Hx COPD Neurological Medical History: Denies: Hx Seizures Endocrine Medical History: Denies: Hx Diabetes Mellitus Type 1, Hx Diabetes Mellitus Type 2, Hx Hyperthyroidism, Hx Hypothyroidism Renal/ Medical History: Reports: Hx Kidney Stones. Denies: Hx Peritoneal Dialysis GI Medical History: Reports: Hx Gastroesophageal Reflux Disease, Hx Hiatal Hernia. Denies: Hx Cirrhosis, Hx Hepatitis Musculoskeltal Medical History: Reports Hx Arthritis Skin Medical History: Denies Hx Eczema, Denies Hx Psoriasis Psychiatric Medical History: Reports: Hx Depression Infectious Medical History: Denies: Hx Hepatitis Past Surgical History: Reports: Hx Cardiac Surgery - Immunizations Immunizations up to date: Yes Physical Exam - Vital signs Vitals: Temp Pulse Resp BP Pulse Ox 98.9 F 68 15 122/69 95 08/15/19 19:24 08/15/19 19:24 08/15/19 19:24 08/15/19 19:24 08/15/19 19:24 Course - Vital Signs Vital signs: Temp Pulse Resp BP Pulse Ox 98.9 F 68 15 122/69 95 08/15/19 19:24 08/15/19 19:24 08/15/19 19:24 08/15/19 19:24 08/15/19 19:24 Doctor's Discharge - Discharge Referrals: CHARISSA SANDHU MD [Primary Care Provider] - Follow up as needed
[2019-08-15 20:27] LABS: INTERNATIONAL RATION (INR) 0.88; PROTHROMBIN TIME 11.9 SEC (11.4-15.4)
[2019-08-15 20:35] LABS: ABSOLUTE BASOPHILS # (AUTO) 0.1 10^3/uL (0.0-0.2); ABSOLUTE EOSINOPHILS # (AUTO) 0.1 10^3/uL (0.0-0.6); ABSOLUTE LYMPHOCYTES (AUTO) 1.9 10^3/uL (0.5-4.7); ABSOLUTE MONOCYTES (AUTO) 0.9 10^3/uL (0.1-1.4); ABSOLUTE NEUT (AUTO) 4.5 10^3/uL (1.7-8.2); BASOPHILS % (AUTO) 0.8 % (0-2); EOSINOPHILS % (AUTO) 1.6 % (0-6); HEMATOCRIT 41.2 % (37.9-51.0); LYMPHOCYTES % (AUTO) 25.8 % (13-45); MEAN CORPUSCULAR HEMOGLOBIN 29.7 pg (27.0-33.4); MEAN CORPUSCULAR HGB CONC 34.1 g/dL (32.0-36.0); MEAN CORPUSCULAR VOLUME 87 fl (80-97); MONOCYTES % (AUTO) 11.9 % (3-13); PLATELET COUNT 211 10^3/uL (150-450); RED BLOOD COUNT 4.73 10^6/uL (4.35-5.55); RED CELL DISTRIBUTION WIDTH 13.2 % (11.5-14.0); SEGMENTED NEUTROPHILS % (AUTO) 59.9 % (42-78); TOTAL CELLS COUNTED % (AUTO) 100 %; WHITE BLOOD COUNT 7.5 10^3/uL (4.0-10.5)
[2019-08-15 20:40] LABS: ALBUMIN 4.2 g/dL (3.5-5.0); ALKALINE PHOSPHATASE 97 U/L (38-126); ANION GAP 11 (5-19); ASPARTATE AMINO TRANSFERASE 23 U/L (17-59); BILIRUBIN,DIRECT 0.2 mg/dL (0.0-0.4); BILIRUBIN,TOTAL 0.6 mg/dL (0.2-1.3); BLOOD UREA NITROGEN 14 mg/dL (7-20); CARBON DIOXIDE 27 mmol/L (22-30); CHLORIDE 92 mmol/L (98-107); CREATINE KINASE 137 U/L (55-170); GLUCOSE 89 mg/dL (75-110); POTASSIUM 3.4 mmol/L (3.6-5.0); TOTAL PROTEIN 6.7 g/dL (6.3-8.2)
--- NOTE | 2019-08-15 20:43 | RADIOLOGY REPORT (SQ) ---
EXAM DESCRIPTION: XR CHEST 1 VIEW COMPLETED DATE/TME: 08/15/2019 19:56 CLINICAL HISTORY: 53 years, Male, syncopal episode COMPARISON: Prior study from 12/09/2018 NUMBER OF VIEWS: One TECHNIQUE: Single frontal view of the chest was obtained. LIMITATIONS: None. FINDINGS: Cardiac and mediastinal contours are stable. Lungs are clear. No pleural effusion or pneumothorax. IMPRESSION: No acute disease. copyright 2010 [employer]- All Rights Reserved
--- NOTE | 2019-08-15 20:43 | RADIOLOGY REPORT (SQ) ---
EXAM DESCRIPTION: CT HEAD WITHOUT IV CONTRAST COMPLETED DATE/TME: 08/15/2019 19:57 CLINICAL HISTORY: 53 years, Male, syncopal episode, forehead injury COMPARISON: None. TECHNIQUE: 209 Images stored on PACS. All CT scanners at this facility use dose modulation, iterative reconstruction, and/or weight based dosing when appropriate to reduce radiation dose to as low as reasonably achievable (ALARA). [facility]: Dose Right [facility]: CareDose [facility]: Dose Right [facility]: Teradose 4D [facility]: [employer] LIMITATIONS: None. FINDINGS: The globes are intact. The paranasal sinuses and mastoid air cells are unremarkable. No displaced or depressed skull fracture. No intra or extra-axial hemorrhage. CT is limited for evaluation of acute infarct. No CT evidence for large or territorial acute infarct. No mass or midline shift IMPRESSION: Negative exam TECHNICAL DOCUMENTATION: Quality ID # 436: Final reports with documentation of one or more dose reduction techniques (e.g., Automated exposure control, adjustment of the mA and/or kV according to patient size, use of iterative reconstruction technique) copyright 2011 [employer]- All Rights Reserved
[2019-08-15] MEDS ORDERED: NORMAL SALINE 1000 ML 1,000 ML IV ONE (20:47)
--- NOTE | 2019-08-15 20:48 | RADIOLOGY REPORT (SQ) ---
EXAM DESCRIPTION: XR LUMBAR SPINE ANTEROPOSTERIOR, LATERAL, AND OBLIQUES COMPLETED DATE/TME: 08/15/2019 19:57 CLINICAL HISTORY: 53 years, Male, low back pain s/p fall Findings: Vertebral body heights are intact. Alignment is intact. No subluxation. Pedicles are intact. Mild degenerative changes at L4-5. Facets are normally aligned. IMPRESSION: No evidence for fracture or subluxation.
[2019-08-15] MEDS: NITROGLYCERIN 0.4 MG/TAB 25 TAB/BOTTLE SL PRN ×2 (21:18→21:25)
[2019-08-15 21:19] LABS: APPEARANCE,URINE CLEAR; BILIRUBIN,URINE NEGATIVE (NEGATIVE); COLOR,URINE STRAW; GLUCOSE, URINE NEGATIVE (NEGATIVE); KETONES,URINE NEGATIVE (NEGATIVE); LEUKOCYTE ESTERASE,URINE NEGATIVE (NEGATIVE); NITRITE,URINE NEGATIVE (NEGATIVE); PROTEIN,URINE NEGATIVE (NEGATIVE); UROBILINOGEN,URINE NEGATIVE mg/dL (<2.0)
[2019-08-15 21:28] LABS: URINE SPECIFIC GRAVITY 1.003
[2019-08-15] MEDS ORDERED: NITROGLYCERIN 0.4 MG/TAB 25 TAB/BOTTLE SL ONE (22:01)
[2019-08-15] MEDS ORDERED: NORMAL SALINE 1000 ML 500 ML IV ONE (22:28)
[2019-08-15] MEDS ORDERED: NITROGLYCERIN 2% OINTMENT 1 GM PACKET TP ONE (22:28)
[2019-08-16] MEDS ORDERED: MORPHINE SULFATE 10 MG/ML INJ IV ONE (00:03)
--- NOTE | 2019-08-16 01:51 | RADIOLOGY REPORT (SQ) ---
CLINICAL HISTORY: bowel gas/diarrhea COMPARISON: None. TECHNIQUE: XR ABDOMEN 1 VIEW (KUB) 08/16/2019 12:42 AM CDT FINDINGS: Bowel gas pattern is nonspecific. There are no abnormal radiopaque foreign bodies or abnormal calcifications. Osseous structures are grossly unremarkable. IMPRESSION: No bowel obstruction.
--- NOTE | 2019-08-16 01:52 | RADIOLOGY REPORT (SQ) ---
EXAM DESCRIPTION: CTA chest with contrast CLINICAL HISTORY: 53 years Male, hypotension, CP COMPARISON: None. TECHNIQUE: Axial images of the chest were performed utilizing intravenous contrast, with sagittal and coronal MIP images and sagittal and coronal reformatted images. This exam was performed according to our departmental dose-optimization program which includes use of Automated Exposure Control, adjustment of the mA and/or kV according to patient size and/or use of iterative reconstruction technique. FINDINGS: No evidence of pulmonary embolus. No evidence of aortic dissection. No evidence of pulmonary infiltrate or pleural effusion. No evidence of mediastinal or hilar adenopathy. IMPRESSION: No acute finding.
[2019-08-16] MEDS ORDERED: ACETAMINOPHEN 325 MG TABLET PO PRN (02:04)
[2019-08-16] MEDS ORDERED: NITROGLYCERIN 0.4 MG/TAB 25 TAB/BOTTLE SL PRN (02:04)
--- NOTE | 2019-08-16 02:04 | ER Document Report ---
ED Syncope and Near Syncope - General Chief Complaint: Syncope Stated Complaint: POSSIBLE SYNCOPE Time Seen by Provider: 08/15/19 19:42 Notes: Patient is a 53-year-old male history of hypertension, depression, GERD presents to the emergency department for near syncopal episode this morning and a syncopal episode this afternoon. Patient states this morning he was walking with a friend to go get breakfast. States he felt lightheaded and had a near syncopal episode. States he fell onto his right knee. Patient's friend states he turned around and does not feel as though the patient was fully unresponsive. Stated they walked into breakfast, ate breakfast normally the patient was acting normally. Patient voices he was at home this afternoon when he had a pinching sensation in the left side of his chest. States he felt very nauseate d. States he tried to walk to the bathroom and at that time had a full syncopal episode. Patient states he remembers waking up on the floor. Neighbor states he was then called to the house. States he found patient lying in the bathroom floor. It is unknown the amount of time patient was unresponsive for. Upon EMS arrival patient was conscious alert and oriented x4. Patient states he continues with an achy, pressure in the left side of his chest. Pain does not increase or decrease upon deep inspiration or palpation. Patient was complaining of generalized lumbar back pain status post fall. Patient voices he has had "a couple" episodes of diarrhea in the last 5 days. See denying any blood. Patient voices he ate at [employer] and since then had the episodes of diarrhea. Patient's denying any fevers, dysuria, shortness of breath. TRAVEL OUTSIDE OF THE [place] IN LAST 30 DAYS: No - Related Data Allergies/Adverse Reactions: No Known Allergies Allergy (Verified 08/15/19 19:10) Past Medical History - General Information source: Patient - Social History Smoking Status: Never Smoker Chew tobacco use (# tins/day): No Frequency of alcohol use: Rare Drug Abuse: None Family History: Reviewed & Not Pertinent Patient has suicidal ideation: No Patient has homicidal ideation: No - Past Medical History Cardiac Medical History: Reports: Hx Coronary Artery Disease, Hx Heart Attack, Hx Hypertension Denies: Hx Congestive Heart Failure, Hx DVT, Hx Hypercholesterolemia, Hx Pulmonary Embolism Pulmonary Medical History: Denies: Hx Asthma, Hx COPD Neurological Medical History: Denies: Hx Seizures Endocrine Medical History: Denies: Hx Diabetes Mellitus Type 1, Hx Diabetes Mellitus Type 2, Hx Hyperthyroidism, Hx Hypothyroidism Renal/ Medical History: Reports: Hx Kidney Stones. Denies: Hx Peritoneal Dialysis GI Medical History: Reports: Hx Gastroesophageal Reflux Disease, Hx Hiatal Hernia. Denies: Hx Cirrhosis, Hx Hepatitis Musculoskeletal Medical History: Reports Hx Arthritis Skin Medical History: Denies Hx Eczema, Denies Hx Psoriasis Psychiatric Medical History: Reports: Hx Depression Infectious Medical History: Denies: Hx Hepatitis Past Surgical History: Reports: Hx Cardiac Surgery - Immunizations Immunizations up to date: Yes Review of Systems - Review of Systems Constitutional: denies: Fever EENT: No symptoms reported Cardiovascular: See HPI Respiratory: No symptoms reported Gastrointestinal: See HPI Genitourinary: No symptoms reported Male Genitourinary: No symptoms reported Musculoskeletal: See HPI Skin: See HPI Hematologic/Lymphatic: No symptoms reported Neurological/Psychological: See HPI Physical Exam - Vital signs Vitals: Temp Pulse Resp BP Pulse Ox 98.9 F 68 15 122/69 95 08/15/19 19:24 08/15/19 19:24 08/15/19 19:24 08/15/19 19:24 08/15/19 19:24 - Notes Notes: GENERAL: Alert, interacts well. No acute distress. HEAD: Normocephalic, atraumatic. EYES: Pupils equal, round, and reactive to light. Extraocular movements intact. ENT: Oral mucosa moist, tongue midline. Nares patent, no nasal septal hematoma, TM's intact, no hemotympanum noted bilaterally. NECK: Full range of motion. Supple. Trachea midline. LUNGS: Clear to auscultation bilaterally, no wheezes, rales, or rhonchi. No respiratory distress. HEART: Regular rate and rhythm. No murmur ABDOMEN: Soft, non-tender. Non-distended. Bowel sounds present in all 4 quadrants. EXTREMITIES: Moves all 4 extremities spontaneously. No edema, normal radial and dorsalis pedis pulses bilaterally. No cyanosis. Abrasion noted right knee, no point tenderness noted. BACK: no cervical, thoracic, lumbar midline tenderness. No saddle anesthesia, normal distal neurovascular exam. NEUROLOGICAL: Alert and oriented x3. Normal speech. PSYCH: Normal affect, normal mood. SKIN: Warm, dry, normal turgor. No rashes or lesions noted. Course - Re-evaluation Re-evalutation: Patient was initially treated with 3 sublingual nitroglycerin for the ac hy/pressure in his left chest. Initially was a 4 out of 10 brought that down to about 1 out of 10. I discussed the use of Nitropaste and morphine with him at bedside. Patient wishes to decline morphine at this time. States he has had multiple friends who have gotten morphine and "act crazy." Nitropaste was administered. Patient states pain is now 0.5 out of 10, achy feeling in the left chest. Continues to deny that the pain increases on palpation or deep inspiration. Patient now agrees to morphine administration. 2 mg of morphine administered, patient now states chest pain is 0 out of 10. Discussed this case with hospitalist Dr. Figueredo who is requesting CTA to rule out pulmonary embolus. CTA ordered and resulted, no evidence of pulmonary embolus. Again discussed this case with hospitalist Dr. Figueredo who will admit the patient for syncopal episode and ACS rule out. Patient's blood pressure remains around 100 systolic, he remains chest pain- free. EKG shows sinus rhythm rate of 64, QTc 409, no ST segment elevations or depressions noted. - Vital Signs Vital signs: Temp Pulse Resp BP Pulse Ox 98.9 F 68 14 101/69 97 08/15/19 19:24 08/15/19 19:24 08/16/19 02:11 08/16/19 02:11 08/16/19 02:11 - Laboratory Result Diagrams: 08/15/19 20:02 08/15/19 20:02 Laboratory results interpreted by me: 08/15/19 08/15/19 20:02 20:02 Sodium 129.5 L Potassium 3.4 L Chloride 92 L Cholesterol 213.52 H LDL Cholesterol Direct 163 H HDL Cholesterol 37 L Discharge - Discharge Clinical Impression: Syncope Qualifiers: Syncope type: unspecified Qualified Code(s): R55 - Syncope and collapse Chest pain Qualifiers: Chest pain type: unspecified Qualified Code(s): R07.9 - Chest pain, unspecified Condition: Stable Disposition: ADMITTED OBSERVATION Unit Admitted: Telemetry
[2019-08-16] MEDS ORDERED: POTASSIUM CHLORIDE 10 MEQ CAPSULE.ER PO ONE (02:07)
[2019-08-16 02:39] LABS: CHOLESTEROL 213.52 mg/dL (0-200); TRIGLYCERIDES 148 mg/dL (<150)
[2019-08-16 02:50] LABS: DIRECT LDL 163 mg/dL (<100)
[2019-08-16 03:33] LABS: URINE AMPHETAMINES SCREEN NEGATIVE; URINE BARBITURATES SCREEN NEGATIVE; URINE BENZODIAZEPINES SCREEN NEGATIVE; URINE COCAINE SCREEN NEGATIVE; URINE MARIJUANA (THC) SCREEN NEGATIVE; URINE METHADONE SCREEN NEGATIVE; URINE PHENCYCLIDINE SCREEN NEGATIVE
--- NOTE | 2019-08-16 06:47 | PDOC H&P ---
History of Present Illness Admission Date/PCP: 08/16/19 02:25 CHARISSA SANDHU MD Patient complains of: Presyncope and chest pain History of Present Illness: QING JUNE is a 53 year old male with a history of depression and anxiety. He presents after near syncopal episodes. He denies headache palpitations, shortness of breath, nausea vomiting but he has had several loose stools after eating fast food. He has multiple chronic complaints but also voices left-sided chest wall pain which is pinching in nature 3-5 intensity, nonradiating that was relieved by nitroglycerin. He is unable to identify exacerbating factors with exception to palpation of the chest wall. In the emergency room he has a completely negative work-up though he is referred to the hospitalist for observation. He denies recent stress test. Past Medical History Cardiac Medical History: Reports: Hypertension Denies: Congestive Heart Failure, DVT, Hyperlipidema, Pulmonary Embolism Pulmonary Medical History: Denies: Asthma, Chronic Obstructive Pulmonary Disease (COPD) Neurological Medical History: Denies: Seizures Endocrine Medical History: Denies: Diabetes Mellitus Type 1, Diabetes Mellitus Type 2, Hyperthyroidism, Hypothyroidism GI Medical History: Reports: Gastroesophageal Reflux Disease, Hiatal Hernia Denies: Cirrhosis, Hepatitis Musculoskeltal Medical History: Reports: Arthritis Skin Medical History: Denies: Eczema, Psoriasis Psychiatric Medical History: Reports: Depression, General Anxiety Disorder Social History Information Source: Patient Smoking Status: Never Smoker Frequency of Alcohol Use: Rare Hx Recreational Drug Use: No Drugs: None Hx Prescription Drug Abuse: No - Advance Directive Resuscitation Status: Full Code Family History Family History: Hypertension Parental Family History Reviewed: Yes Children Family History Reviewed: Yes Sibling(s) Family History Reviewed.: Yes Medication/Allergy Home Medications: Aspirin [Ecotrin 81 mg EC Tablet] 81 mg PO DAILY #30 tabec 02/07/17 Atorvastatin Calcium [Lipitor 40 mg Tablet] 40 mg PO QHS #30 tablet 02/07/17 Cyclobenzaprine HCl [Flexeril 10 mg Tablet] 10 mg PO QHS #3 tablet 02/07/17 Fluoxetine HCl [Prozac] 40 mg PO DAILY 02/07/17 Omeprazole Magnesium [Prilosec Otc] 40 mg PO DAILY 02/07/17 Docusate Sodium [Colace 100 mg Capsule] 100 mg PO ASDIR PRN #30 capsule 03/06/18 Ketorolac Tromethamine [Toradol 10 mg Tablet] 10 mg PO Q8HP PRN #24 tablet 03/06/18 Methocarbamol [Robaxin 750 mg Tablet] 750 mg PO Q6 #20 tablet 03/06/18 Allergies/Adverse Reactions: No Known Allergies Allergy (Verified 08/15/19 19:10) Review of Systems Constitutional: ABSENT: chills, fever(s), headache(s), weight gain, weight loss Eyes: ABSENT: visual disturbances Ears: ABSENT: hearing changes Cardiovascular: ABSENT: chest pain, dyspnea on exertion, edema, orthropnea, pal pitations Respiratory: ABSENT: cough, hemoptysis Gastrointestinal: ABSENT: abdominal pain, constipation, diarrhea, hematemesis, hematochezia, nausea, vomiting Genitourinary: ABSENT: dysuria, hematuria Musculoskeletal: ABSENT: joint swelling Integumentary: ABSENT: rash, wounds Neurological: ABSENT: abnormal gait, abnormal speech, confusion, dizziness, focal weakness, syncope Psychiatric: ABSENT: anxiety, depression, homidical ideation, suicidal ideation Endocrine: ABSENT: cold intolerance, heat intolerance, polydipsia, polyuria Hematologic/Lymphatic: ABSENT: easy bleeding, easy bruising Physical Exam Vital Signs: Temp Pulse Resp BP Pulse Ox 97.5 F 66 15 106/54 L 98 08/16/19 03:54 08/16/19 03:54 08/16/19 03:54 08/16/19 03:54 08/16/19 03:54 Intake & Output 08/14/19 08/15/19 08/16/19 11:59 11:59 11:59 Intake Total 500 Output Total 0 Balance 500 Weight 88.3 kg General appearance: PRESENT: no acute distress, well-developed, well-nourished Head exam: PRESENT: atraumatic, normocephalic Eye exam: PRESENT: conjunctiva pink, EOMI, PERRLA. ABSENT: scleral icterus Ear exam: PRESENT: normal external ear exam Mouth exam: PRESENT: moist, tongue midline Neck exam: ABSENT: carotid bruit, JVD, lymphadenopathy, thyromegaly Respiratory exam: PRESENT: clear to auscultation fabrizio. ABSENT: rales, rhonchi, wheezes Cardiovascular exam: PRESENT: RRR. ABSENT: diastolic murmur, rubs, systolic murmur Pulses: PRESENT: normal dorsalis pedis pul Vascular exam: PRESENT: normal capillary refill GI/Abdominal exam: PRESENT: normal bowel sounds, soft. ABSENT: distended, guarding, mass, organolmegaly, rebound, tenderness Rectal exam: PRESENT: deferred Extremities exam: PRESENT: full ROM. ABSENT: calf tenderness, clubbing, pedal edema Neurological exam: PRESENT: alert, awake, oriented to person, oriented to place, oriented to time, oriented to situation, CN II-XII grossly intact. ABSENT: motor sensory deficit Psychiatric exam: PRESENT: anxious, normal mood. ABSENT: homicidal ideation, suicidal ideation Skin exam: PRESENT: dry, intact, warm. ABSENT: cyanosis, rash Results Laboratory Results: 08/15/19 20:02 08/15/19 20:02 08/15/19 08/15/19 08/15/19 20:02 20:02 20:02 WBC 7.5 RBC 4.73 Hgb 14.0 Hct 41.2 MCV 87 MCH 29.7 MCHC 34.1 RDW 13.2 Plt Count 211 Seg Neutrophils % 59.9 Sodium 129.5 L Potassium 3.4 L Chloride 92 L Carbon Dioxide 27 Anion Gap 11 BUN 14 Creatinine 1.23 Est GFR ( Amer) > 60 Glucose 89 Calcium 9.0 Magnesium Total Bilirubin 0.6 AST 23 Alkaline Phosphatase 97 Total Protein 6.7 Albumin 4.2 Triglycerides 148 Cholesterol 213.52 H LDL Cholesterol Direct 163 H VLDL Cholesterol 30.0 HDL Cholesterol 37 L TSH Urine Color Urine Appearance Urine pH Ur Specific [place] Urine Protein Urine Glucose (UA) Urine Ketones Urine Blood Urine Nitrite Ur Leukocyte Esterase Urine WBC (Auto) 08/15/19 08/15/19 08/15/19 20:02 20:02 20:36 WBC RBC Hgb Hct MCV MCH MCHC RDW Plt Count Seg Neutrophils % Sodium Potassium Chloride Carbon Dioxide Anion Gap BUN Creatinine Est GFR ( Amer) Glucose Calcium Magnesium 2.0 Total Bilirubin AST Alkaline Phosphatase Total Protein Albumin Triglycerides Cholesterol LDL Cholesterol Direct VLDL Cholesterol HDL Cholesterol TSH 5.23 H Urine Color STRAW Urine Appearance CLEAR Urine pH 5.0 Ur Specific [place] 1.003 Urine Protein NEGATIVE Urine Glucose (UA) NEGATIVE Urine Ketones NEGATIVE Urine Blood NEGATIVE Urine Nitrite NEGATIVE Ur Leukocyte Esterase NEGATIVE Urine WBC (Auto) 0 08/15/19 08/15/19 08/15/19 20:02 20:02 23:10 Creatine Kinase 137 Troponin I < 0.012 < 0.012 08/16/19 05:20 Creatine Kinase Troponin I < 0.012 Impressions: Chest X-Ray 08/15/19 19:56 IMPRESSION: No acute disease. copyright 2010 [employer]- All Rights Reserved Head CT 08/15/19 19:57 IMPRESSION: Negative exam TECHNICAL DOCUMENTATION: Quality ID # 436: Final reports with documentation of one or more dose reduction techniques (e.g., Automated exposure control, adjustment of the mA and/or kV according to patient size, use of iterative reconstruction technique) copyright 2010 [employer]- All Rights Reserved Lumbar Spine X-Ray 08/15/19 19:57 IMPRESSION: No evidence for fracture or subluxation. Chest/Abdomen CTA 08/16/19 00:38 IMPRESSION: No acute finding. KUB X-Ray 08/16/19 00:42 IMPRESSION: No bowel obstruction. Assessment and Plan - Diagnosis (1) Chest pain Qualifiers: Chest pain type: unspecified Qualified Code(s): R07.9 - Chest pain, unspecified Is this a current diagnosis for this admission?: Yes Plan: Atypical chest pain though the patient's pain is atypical there are multiple risk factors for coronary artery disease and subsequently will observe and evaluation of acute coronary syndrome versus coronary artery disease with anginal equivalents. Cardiac monitoring blood pressure Q6 hours ,TSH, lipid profile, serial cardiac enzymes and cardiac stress test (2) Syncope Qualifiers: Syncope type: unspecified Qualified Code(s): R55 - Syncope and collapse Is this a current diagnosis for this admission?: Yes Plan: Orthostatic blood pressure (3) Anxiety Is this a current diagnosis for this admission?: Yes Plan: Suggest limiting caffeine and outpatient follow-up with mental health. - Time Time Spent with patient: 35 or more minutes - Inpatient Certification Medical Necessity: Need Close Monitoring Due to Risk of Patient Decompensation
--- NOTE | 2019-08-16 07:21 | EKG REPORT ---
SEVERITY:- NORMAL ECG - SINUS RHYTHM : Confirmed by: Aroldo Jauregui MD 16-Aug-2019 07:20:36
[2019-08-16 08:58] LABS: FREE T3 3.81 pg/mL (2.77-5.27); FREE T4 (FREE THYROXINE) 1.24 ng/dL (0.78-2.19)
[2019-08-16] MEDS ORDERED: REGADENOSON INJ 0.4 MG/5 ML DISP.SYRIN IV ONE (11:29)
--- NOTE | 2019-08-16 11:37 | RADIOLOGY REPORT (SQ) ---
EXAM DESCRIPTION: CAROTID DOPPLER COMPLETED DATE/TIME: 08/16/2019 11:25 am REASON FOR STUDY: syncope COMPARISON: None. TECHNIQUE: Grayscale ultrasound, Doppler velocity and spectra, and color Doppler images acquired of the extra-cranial carotid and vertebral arteries. Images stored on PACS. LIMITATIONS: None. FINDINGS: RIGHT CAROTID CCA Velocities: Within normal limits. ICA Velocities Peak systolic 0.88 m/s. End diastolic 0.44 m/s. Proximal ICA/CCA peak systolic ratio 1.2. Spectra normal. No significant plaque. LEFT CAROTID CCA Velocities: Within normal limits. ICA Velocities Peak systolic 0.94 m/s. End diastolic 0.44 m/s. Proximal ICA/CCA peak systolic ratio 1.0. Spectra normal. No significant plaque. VERTEBRAL ARTERIES: Antegrade flow. Normal waveforms. SUBCLAVIAN ARTERIES: No finding. OTHER: No other significant finding. IMPRESSION: NO HEMODYNAMICALLY SIGNIFICANT STENOSIS. COMMENT: Quality ID #195: Velocity criteria are extrapolated from the diameter data as defined by t he Society of Radiologists in Ultrasound Consensus Conference. Radiology 2003: 229; 340-346. TECHNICAL DOCUMENTATION: JOB ID: [id number] [employer]- All Rights Reserved Reading location - IP/workstation name: [email or web address]
[2019-08-16] MEDS ORDERED: ATORVASTATIN CALCIUM 40 MG TABLET PO SCH (22:00)
[2019-08-17 08:48] VITALS: BP 129/73
--- NOTE | 2019-08-17 13:27 | Progress Note Acknowledgement ---
Progress Note Acknowledgement Progess Note Acknowledgement: I, the undersigned member of the medical staff with appropriate privileges and with supervisory authority over [ PAC ], a dependent practice allied health professional, acknowledge that I have reviewed the progress notes entered on this patient, and in my professional judgment believe that the assessment made and/or any care evidenced was appropriate
--- NOTE | 2019-08-17 13:31 | PDOC PROGRESS REPORT ---
Subjective Progress Note for:: 08/17/19 Subjective:: 53-year-old male admitted to the hospital for chest pain and presyncope patient was actually put in observation status getting a cardiac work-up done to include a stress test today. Patient is currently having no chest pain Reason For Visit: CHEST PAIN, PRE-SYNCOPE Physical Exam Vital Signs: Temp Pulse Resp BP Pulse Ox 97.4 F 63 16 129/73 H 98 08/17/19 07:30 08/17/19 07:30 08/17/19 07:30 08/17/19 07:30 08/17/19 07:30 Intake & Output 08/16/19 08/17/19 08/18/19 06:59 06:59 06:59 Intake Total 500 884 Output Total 0 Balance 500 884 Weight 88.3 kg 88.3 kg General appearance: PRESENT: no acute distress, other - Patient sitting up in bed in no distress Respiratory exam: PRESENT: clear to auscultation fabrizio. ABSENT: rales, rhonchi, wheezes Cardiovascular exam: PRESENT: RRR. ABSENT: diastolic murmur, rubs, systolic murmur Neurological exam: PRESENT: alert, awake, oriented to person, oriented to place, oriented to time, oriented to situation, CN II-XII grossly intact. ABSENT: motor sensory deficit Psychiatric exam: PRESENT: appropriate affect, normal mood. ABSENT: homicidal ideation, suicidal ideation Results Laboratory Results: 08/15/19 20:02 08/15/19 20:02 08/15/19 08/15/19 08/15/19 20:02 20:02 23:10 Creatine Kinase 137 Troponin I < 0.012 < 0.012 08/16/19 08/16/19 08/16/19 05:20 10:51 17:52 Creatine Kinase Troponin I < 0.012 < 0.012 < 0.012 Impressions: Chest X-Ray 08/15/19 19:56 IMPRESSION: No acute disease. copyright 2010 [employer]- All Rights Reserved Head CT 08/15/19 19:57 IMPRESSION: Negative exam TECHNICAL DOCUMENTATION: Quality ID # 436: Final reports with documentation of one or more dose reduction techniques (e.g., Automated exposure control, adjustment of the mA and/or kV according to patient size, use of iterative reconstruction technique) copyright 2011 [employer]- All Rights Reserved Lumbar Spine X-Ray 08/15/19 19:57 IMPRESSION: No evidence for fracture or subluxation. Chest/Abdomen CTA 08/16/19 00:38 IMPRESSION: No acute finding. KUB X-Ray 08/16/19 00:42 IMPRESSION: No bowel obstruction. Carotid Doppler Study 08/16/19 08:53 IMPRESSION: NO HEMODYNAMICALLY SIGNIFICANT STENOSIS. Assessment and Plan - Diagnosis (1) Chest pain Qualifiers: Chest pain type: unspecified Qualified Code(s): R07.9 - Chest pain, unspecified Is this a current diagnosis for this admission?: Yes Plan: Atypical chest pain though the patient's pain is atypical there are multiple risk factors for coronary artery disease and subsequently will observe and evaluation of acute coronary syndrome versus coronary artery disease with anginal equivalents. Cardiac monitoring blood pressure Q6 hours ,TSH, lipid profile, serial cardiac enzymes and cardiac stress test 08/17/2019 he was having a cardiac stress test done today all of his troponins were negative. Prior to coming in patient was taking lisinopril and HCTZ also Norvasc 10 mg daily (2) Musculoskeletal chest pain Is this a current diagnosis for this admission?: Yes Plan: 08/17/2019 patient has chest pain today patient is on no medication for pain (3) Anxiety Is this a current diagnosis for this admission?: Yes Plan: Suggest limiting caffeine and outpatient follow-up with mental health. 08/17/2019 patient was taking Prozac 40 mg a day prior to coming in the hospital (4) Depression Qualifiers: Depression Type: unspecified Qualified Code(s): F32.9 - Major depressive disorder, single episode, unspecified Is this a current diagnosis for this admission?: Yes Plan: 08/17/2019 she will continue his Prozac 40 mg daily, no complaint of depression or anxiety - Time Time Spent with patient: 35 or more minutes
--- NOTE | 2019-08-17 17:08 | PDOC DISCHARGE SUMMARY ---
General - Admit/Disc Date/PCP Admission Date/Primary Care Provider: 08/16/19 02:25 CHARISSA SANDHU MD Discharge Date: 08/17/19 - Discharge Diagnosis (1) Chest pain Is this a current diagnosis for this admission?: Yes Summary: She had a negative stress test today and 3 troponins were normal (2) Musculoskeletal chest pain Is this a current diagnosis for this admission?: Yes Summary: Patient's pain at least by description seems to be more musculoskeletal (3) Anxiety Is this a current diagnosis for this admission?: Yes Summary: Patient does seem anxious and takes medication for anxiety (4) Depression Is this a current diagnosis for this admission?: Yes Summary: Patient is on medication for antidepression although he does not display any overt signs of depression - Additional Information Resuscitation Status: Full Code Discharge Diet: As Tolerated Discharge Activity: Activity As Tolerated Prescriptions: Atorvastatin Calcium [Lipitor 40 mg Tablet] 40 mg PO QHS #30 tablet Home Medications: Amlodipine Besylate [Norvasc 10 mg Tablet] 10 mg PO DAILY 08/16/19 Fluoxetine HCl [Prozac] 40 mg PO DAILY 08/16/19 Fluticasone Propionate [Flonase Nasal [place] 50 Mcg/[place] 16 gm] 1 spray NASL DAILYP PRN 08/16/19 Lisinopril/Hydrochlorothiazide [Zestoretic 20-25 mg Tablet] 1 tab PO DAILY 08/16/19 Loratadine [Claritin 10 mg Tablet] 10 mg PO DAILY 08/16/19 Omeprazole 40 mg PO [id number] 08/16/19 Atorvastatin Calcium [Lipitor 40 mg Tablet] 40 mg PO QHS #30 tablet 08/17/19 History of Present Illness History of Present Illness: QING JUNE is a 53 year old male who comes into the emergency room complaining of chest pain and near syncope. Patient has multiple other complaints as well. Hospital Course Hospital Course: Patient was admitted to the hospital and had troponin x4. Patient had a negative stress test today patient's TSH is slightly elevated at 5.23 however free T4 and free T3 are normal as well as magnesium level is normal. Carotid Doppler studies were negative for stenosis. Head CT scan was normal CTA the of the chest with no evidence of PE no evidence of aortic dissection no evidence of pulmonary infiltrate Patient had an appointment made with his primary care provider by the hospital for tomorrow or . Patient was continued on his same home medicines plus Lipitor which was added here in the hospital, 40 mg daily Patient was satisfied at the time of discharge, patient was told if he continued to have chest pain to make an appointment with the military professional Dr. Wilks to perform the stress test. Physical Exam Vital Signs: Temp Pulse Resp BP Pulse Ox 97.4 F 72 16 129/73 H 98 08/17/19 15:52 08/17/19 15:52 08/17/19 15:52 08/17/19 07:30 08/17/19 15:52 Intake & Output 08/16/19 08/17/19 08/18/19 06:59 06:59 06:59 Intake Total 500 884 Output Total 0 Balance 500 884 Weight 88.3 kg 88.3 kg General appearance: PRESENT: no acute distress Respiratory exam: PRESENT: clear to auscultation fabrizio. ABSENT: rales, rhonchi, wheezes Cardiovascular exam: PRESENT: RRR. ABSENT: diastolic murmur, rubs, systolic [place] Neurological exam: PRESENT: alert, awake, oriented to person, oriented to place, oriented to time, oriented to situation, CN II-XII grossly intact. ABSENT: motor sensory deficit Psychiatric exam: PRESENT: appropriate affect, normal mood. ABSENT: homicidal ideation, suicidal ideation Results Laboratory Results: 08/15/19 20:02 08/15/19 20:02 08/15/19 08/15/19 08/15/19 20:02 20:02 23:10 Creatine Kinase 137 Troponin I < 0.012 < 0.012 08/16/19 08/16/19 08/16/19 05:20 10:51 17:52 Creatine Kinase Troponin I < 0.012 < 0.012 < 0.012 Impressions: Chest X-Ray 08/15/19 19:56 IMPRESSION: No acute disease. copyright 2010 [employer]- All Rights Reserved Head CT 08/15/19 19:57 IMPRESSION: Negative exam TECHNICAL DOCUMENTATION: Quality ID # [id number]: Final reports with documentation of one or more dose reduction techniques (e.g., Automated exposure control, adjustment of the mA and/or kV according to patient size, use of iterative reconstruction technique) copyright 2010 [employer]- All Rights Reserved Lumbar Spine X-Ray 08/15/19 19:57 IMPRESSION: No evidence for fracture or subluxation. Chest/Abdomen CTA 08/16/19 00:38 IMPRESSION: No acute finding. KUB X-Ray 08/16/19 00:42 IMPRESSION: No bowel obstruction. Carotid Doppler Study 08/16/19 08:53 IMPRESSION: NO HEMODYNAMICALLY SIGNIFICANT STENOSIS. Qualifiers - * PATIENT BEING DISCHARGED WITH ANY OF THE FOLLOWING DIAGNOSIS: No Acute Heart Failure - Is this a Heart Failure Patient?: No Plan Time Spent: Greater than 30 Minutes - Follow-up with your primary care provider this week and if chest pain continues follow-up with the military professional that performed your stress test
--- NOTE | 2019-08-17 21:59 | DRAGON STRESS TEST REPORT ---
Intravenous Lexiscan Cardiolite stress test using single photon emmision computerized tomography. Date of procedure: 08/17/2019. Ordering Provider: Dr. Misha Beltrán. Patient's status: In Patient. Indication: Chest pain, and presyncope. Coronary risk factors: Age, and hypertension Resting EKG: Sinus Rhythm. Normal EKG. Stress EKG: No changes of ischemia. The patient had no chest pain or discomfort. There is no arrhythmia seen on the monitor. Reason for termination: Protocol. Conclusions: Normal EKG and hemodynamic response to IV Lexiscan. Nuclear data: At rest the patient was given 13.75 millicuries of technetium 99m sestamibi injected intravenously. As per protocol rest non gated SPECT images were obtained. Subsequently the patient was given intravenous Lexiscan at a dose of 0.4 mg in 5 mL intravenously, followed by flush with normal saline. Subsequently the stress dose of 41.6 millicuries of technetium 99m sestamibi was injected intravenously. As per protocol stress gated images were obtained. Nuclear interpretation: Review of images showed that all segments of the myocardium had normal perfusion at rest, and normal perfusion post stress with IV Lexiscan. All segments of the myocardium had normal motion, contraction, and thickening by gated study. T. I D. ratio was normal at 0.91. There is no transient ischemic dilatation of the left ventricle. Computer read rest, and stress left ventricular ejection fraction were 50 %, and 54 %, respectively. Visually both the stress and rest ejection fractions were normal, and greater than 55%. Conclusion: 1. There is no scintigraphic evidence of Lexiscan induced myocardial ischemia. 2. There is no scintigraphic evidence of myocardial infarction/scar. Recommendations: Aggressive risk factor modification, and treating the underlying co- morbidities. MTDD
== END 2019-08-17 16:25 | disposition home or self-care (01) ==
LOC: ER 18:50 → EH 08-16 02:25 → 3S 08-16 03:41
PROVIDERS: ADMIT Internal Medicine; ATTEND Internal Medicine
DX: R07.89 Other chest pain (principal); R55 Syncope and collapse; F41.1 Generalized anxiety disorder; F32.9 Major depressive disorder, single episode, unspecified; R42 Dizziness and giddiness; R19.7 Diarrhea, unspecified; R11.0 Nausea; M54.5 Low back pain; S80.211A Abrasion, right knee, initial encounter; W19.XXXA Unspecified fall, initial encounter; Y92.480 Sidewalk as the place of occurrence of the external cause; Y93.01 Activity, walking, marching and hiking; R22.0 Localized swelling, mass and lump, head; Y92.002 Bathroom of unspecified non-institutional (private) residence as the place of occurrence of the external cause; I25.10 Atherosclerotic heart disease of native coronary artery without angina pectoris; K21.9 Gastro-esophageal reflux disease without esophagitis; I10 Essential (primary) hypertension; I25.2 Old myocardial infarction; Z79.899 Other long term (current) drug therapy; Z82.49 Family history of ischemic heart disease and other diseases of the circulatory system; Z79.82 Long term (current) use of aspirin; R29.700 NIHSS score 0
CPT/HCPCS: 93005; 99285; 96361; 96374; 36415 ×2; 84439; 82550; 83735; 84443; 85025; 85610; 80053; 81001; 84484 ×2; 80307; 84481; 80061; 93017; 93880; 71045; 74018; 72110; 78452; 70450; 71275; 93010; G0378 ×3; A9500; J2785; J2270; J3490; J7030; Q9969